=== PATIENT | female | born 1990 | race Caucasian/White ===

== ENCOUNTER 2017-07-27 22:57 | Emergency (ER) | payer OTHER ==
[~2017-07-27] VITALS: Ht 165.1 cm; Wt 97.6 kg
[2017-07-27 22:08] VITALS: BP 102/58
[~2017-07-27 22:57] MED LIST: FERR-252 PO; PREN-546 PO; TERBUTALINE 1 MG/ML VIAL SUBQ ONE; TERBUTALINE 1 MG/ML VIAL SUBQ SCH
[2017-07-27 23:33] VITALS: BP 111/71
--- NOTE | 2017-07-27 23:53 | NUR ---
PATIENT LEFT WITHOUT BEING SEEN BY DR. BARGER. NO FURTHER CARE PROVIDED FOR PATIENT.
== END 2017-07-27 23:53 | disposition left against medical advice (07) ==
LOC: MED 22:57 → EDSTATUS 22:57 → MED 23:53
DX: R10.9 Unspecified abdominal pain (principal); Z53.21 Procedure and treatment not carried out due to patient leaving prior to being seen by health care provider
CPT/HCPCS: 81000; J3105

== ENCOUNTER 2017-11-23 18:15 | Inpatient (IN) | payer OTHER ==
[~2017-11-23] VITALS: Ht 165.1 cm; Wt 104.3 kg
[~2017-11-23 18:15] MED LIST changes: -TERBUTALINE 1 MG/ML VIAL SUBQ ONE; -TERBUTALINE 1 MG/ML VIAL SUBQ SCH
[2017-11-23] MEDS ORDERED: NALBUPHINE HYDROCHLORIDE 10 MG/ML VIAL IVP PRN (18:40)
[2017-11-23] MEDS ORDERED: PROMETHAZINE 25 MG/ML VIAL IVP PRN (18:40)
[2017-11-23] MEDS ORDERED: MISOPROSTOL 25 MCG TAB VG PRN (18:40)
[2017-11-23] MEDS ORDERED: METHYLERGONOVINE 0.2 MG/ML AMP IM PRN (18:40)
[2017-11-23 18:59] VITALS: BP 112/55
[2017-11-23 20:25] LABS: BASOPHILS % (AUTO) 0.3 % (0.0-2.0); EOSINOPHILS % (AUTO) 0.6 % (0.0-4.0); HEMATOCRIT 29.9 % (36-48); HEMOGLOBIN 9.8 g/dL (12.0-16.0); LYMPHOCYTES # (AUTO) 1.4 K/uL (2.5-16.5); LYMPHOCYTES % (AUTO) 19.8 % (20.5-51.1); MEAN CORPUSCULAR HEMOGLOBIN 27 pg (27-31); MEAN CORPUSCULAR HGB CONC 33 g/dL (33-37); MEAN CORPUSCULAR VOLUME 82.6 fL (80-94); MONOCYTES # (AUTO) 0.4 K/uL (0.8-1.0); MONOCYTES % (AUTO) 5.7 % (1.7-9.3); NEUTROPHILS # (AUTO) 5.3 K/uL (1.8-7.7); NEUTROPHILS % (AUTO) 73.6 % (42.2-75.2); PLATELET COUNT (AUTO) 166 K/uL (140-450); RED BLOOD CELL COUNT(AUTO) 3.62 MIL/uL (4.20-5.40); RED CELL DISTRIBUTION WIDTH 15.3 % (11.6-13.7); WHITE BLOOD COUNT (AUTO) 7.2 K/uL (4.8-10.8)
[2017-11-23] MEDS: LACTATED RINGERS 1,000 ML IV SCH (20:28)
[2017-11-23] MEDS ORDERED: MISOPROSTOL 25 MCG TAB ONE (20:35)
[2017-11-23 20:49] LABS: ANION GAP 11.3 (8-16); CARBON DIOXIDE 25.4 mmol/L (21-32); CREATININE 0.6 mg/dL (0.6-1.3); POTASSIUM 3.7 mmol/L (3.5-5.1)
[2017-11-23 20:54] LABS: ALBUMIN 2.5 g/dL (3.4-5.0); TOTAL BILIRUBIN 0.3 mg/dL (0.0-1.0)
[2017-11-23 23:52] LABS: APPEARANCE,URINE CLOUDY (CLEAR); BILIRUBIN,URINE NEGATIVE (NEGATIVE); BLOOD, URINE 1+ (NEGATIVE); COLOR,URINE YELLOW (YELLOW); LEUKOCYTE ESTERASE ,URINE 2+ (NEGATIVE); NITRITE, URINE NEGATIVE (NEGATIVE); UGLUCOSE NEGATIVE (NEGATIVE)
[2017-11-24 00:23] LABS: RBC,URINE 0-5 (RARE) /HPF (0-5); WBC,URINE 80-100 /HPF (0-5); YEAST,URINE Few /HPF (None Seen)
[2017-11-24] MEDS ORDERED: OXYTOCIN 20 UNITS/LR PREMIX 1,000 ML IV ONE (00:44)
[2017-11-24] MEDS: OXYTOCIN 10 UNITS/ML VIAL IM SCH ×2 (00:51→21:16)
[2017-11-24] MEDS ORDERED: NALBUPHINE 10 MG/ML AMP ONE (01:26)
[2017-11-24] MEDS ORDERED: PROMETHAZINE 25 MG/ML VIAL ONE (01:26)
[2017-11-24] MEDS: LACTATED RINGERS 1,000 ML IV SCH ×3 (01:51→14:43)
[2017-11-24] MEDS ORDERED: ROPIVACAINE 0.2%/NS PREMIX 250 ML EPI ONE ×2 (01:57→19:18)
--- NOTE | 2017-11-24 06:54 | NUR ---
PATIENT HAS BEEN SCREENED AND CATEGORIZED LOW NUTRITION RISK. PATIENT WILL BE SEEN WITHIN 7 DAYS OF ADMISSION. 11/30/[address]
[2017-11-24] MEDS ORDERED: CLINDAMYCIN PHOSPHATE 900MG/NS 50 ML IV SCH ×2 (14:00→21:00)
[2017-11-24] MEDS ORDERED: CLINDAMYCIN 900 MG in DEXTROSE 5% 100 ML IV SCH (14:00)
[2017-11-24] MEDS ORDERED: OXYTOCIN 10 UNITS/ML VIAL ONE (20:11)
[2017-11-24] MEDS ORDERED: OXYTOCIN 10 UNITS/ML VIAL IM PRN (20:40)
[2017-11-24] MEDS ORDERED: METHYLERGONOVINE 0.2 MG/ML AMP IM PRN (20:40)
[2017-11-24] MEDS ORDERED: HYDROcodone/APAP 5/325 MG 1 TAB TAB PO PRN (20:40)
[2017-11-24] MEDS ORDERED: TEMAZEPAM 15 MG CAP PO PRN (20:40)
[2017-11-24] MEDS ORDERED: MEASLES, MUMPS, AND RUBELLA 1 VIAL SQVAC PRN (20:40)
[2017-11-24] MEDS ORDERED: BENZOCAINE/MENTHOL 20%-0.5% 60 GM CAN TP PRN (20:40)
[2017-11-24] MEDS ORDERED: IBUPROFEN 800 MG TAB PO PRN (20:40)
[2017-11-24] MEDS ORDERED: DOCUSATE SOD/SENNA 50/8.6 MG 1 TAB PO SCH (21:00)
[2017-11-24] MEDS ORDERED: oxyCODONE/APAP 5/325 MG 1 TAB TAB ONE (22:37)
[2017-11-24] MEDS: oxyCODONE/APAP 5/325 MG 1 TAB TAB PO PRN (22:38)
[2017-11-25] MEDS: oxyCODONE/APAP 5/325 MG 1 TAB TAB PO PRN ×3 (05:15→19:35)
[2017-11-25 06:32] LABS: HEMATOCRIT 28.7 % (36-48); HEMOGLOBIN 9.3 g/dL (12.0-16.0)
[2017-11-26] MEDS: oxyCODONE/APAP 5/325 MG 1 TAB TAB PO PRN (04:55)
[2017-11-26] MEDS ORDERED: IBUP-2213 PO (11:44)
== END 2017-11-26 13:50 | disposition home or self-care (01) | DRG 560 ==
LOC: MLD 18:15 → MFCC 11-25 00:15
PROVIDERS: ADMIT Obstetrics & Gynecology; ATTEND Obstetrics & Gynecology
PROC: 10E0XZZ Delivery of Products of Conception, External Approach (ICD-10-PCS; principal; 2017-11-24)
PROC: 3E0R3BZ Introduction of Anesthetic Agent into Spinal Canal, Percutaneous Approach (ICD-10-PCS; 2017-11-24)
PROC: 00HU33Z Insertion of Infusion Device into Spinal Canal, Percutaneous Approach (ICD-10-PCS; 2017-11-24)
PROC: 0HQ9XZZ Repair Perineum Skin, External Approach (ICD-10-PCS; 2017-11-24)
PROC: 10907ZC Drainage of Amniotic Fluid, Therapeutic from Products of Conception, Via Natural or Artificial Opening (ICD-10-PCS; 2017-11-24)
DX: O69.81X0 Labor and delivery complicated by cord around neck, without compression, not applicable or unspecified (principal); O70.0 First degree perineal laceration during delivery; O89.4 Spinal and epidural anesthesia-induced headache during the puerperium; Z37.0 Single live birth; Z3A.39 39 weeks gestation of pregnancy; Z28.21 Immunization not carried out because of patient refusal
CPT/HCPCS: 36415; 51702; 59200; 59409; 80053; 81001; 85018; 85025; 86592; 86886; 86900; 86901; 87086; J2300; J2550; J2590; J2795; J3490; J7060; J7120

== ENCOUNTER 2022-02-16 12:03 | Emergency (ER) | payer OTHER ==
[~2022-02-16] VITALS: Ht 165.1 cm; Wt 113.9 kg
[~2022-02-16 12:03] MED LIST changes: +IBUP-2213 PO
[2022-02-16 12:09] VITALS: BP 140/79
[2022-02-16] MEDS ORDERED: KETOROLAC 60 MG/2 ML VIAL IM ONE (12:40)
[2022-02-16 13:12] LABS: BASOPHILS % (AUTO) 0.2 % (0.0-2.0); HEMATOCRIT 37.9 % (36-48); HEMOGLOBIN 12.5 g/dL (12.0-16.0); LYMPHOCYTES # (AUTO) 0.7 K/uL (2.5-16.5); LYMPHOCYTES % (AUTO) 7.6 % (20.5-51.1); MEAN CORPUSCULAR HEMOGLOBIN 29 pg (27-31); MEAN CORPUSCULAR HGB CONC 33 g/dL (33-37); MEAN CORPUSCULAR VOLUME 87.7 fL (80-94); MONOCYTES # (AUTO) 0.3 K/uL (0.8-1.0); MONOCYTES % (AUTO) 3.7 % (1.7-9.3); NEUTROPHILS # (AUTO) 8.1 K/uL (1.8-7.7); NEUTROPHILS % (AUTO) 88.5 % (42.2-75.2); PLATELET COUNT (AUTO) 140 K/uL (140-450); RED BLOOD CELL COUNT(AUTO) 4.33 MIL/uL (4.20-5.40); WHITE BLOOD COUNT (AUTO) 9.1 K/uL (4.8-10.8)
[2022-02-16 13:28] LABS: APPEARANCE,URINE CLEAR (CLEAR); BILIRUBIN,URINE NEGATIVE (NEGATIVE); BLOOD, URINE 3+ (NEGATIVE); COLOR,URINE YELLOW (YELLOW); NITRITE, URINE POSITIVE (NEGATIVE); UGLUCOSE NEGATIVE (NEGATIVE)
[2022-02-16 13:45] LABS: ALBUMIN 3.5 g/dL (3.4-5.0); ANION GAP 13.5 (8-16); CARBON DIOXIDE 25.1 mmol/L (21-32); CREATININE 0.9 mg/dL (0.6-1.3); POTASSIUM 3.6 mmol/L (3.5-5.1); TOTAL BILIRUBIN 0.8 mg/dL (0.0-1.0)
[2022-02-16 13:49] LABS: LEUKOCYTE ESTERASE ,URINE 1+ (NEGATIVE)
[2022-02-16 13:56] LABS: RBC,URINE 20-50 /HPF (0-5)
[2022-02-16] MEDS ORDERED: CIPR500T4 PO (14:51)
[2022-02-16] MEDS ORDERED: IBUP-2213 PO (14:51)
[2022-02-16 15:10] VITALS: BP 112/50
== END 2022-02-16 15:10 | disposition home or self-care (01) ==
LOC: MED 12:03
DX: N39.0 Urinary tract infection, site not specified (principal); N20.0 Calculus of kidney; Z88.0 Allergy status to penicillin
CPT/HCPCS: 36415; 74176; 80053; 81001; 81025; 83690; 85025; 87086; 96372; 99284; J1885

== ENCOUNTER 2022-02-19 15:40 | Emergency (ER) | payer OTHER ==
[~2022-02-19] VITALS: Ht 165.1 cm; Wt 111.6 kg
[~2022-02-19 15:40] MED LIST changes: +CIPR500T4 PO
[2022-02-19 16:14] VITALS: BP 112/102
--- NOTE | 2022-02-19 16:35 | NUR ---
32 Y/O FEMALE BIB SELF C/O OF ABD PAIN RADIATING FROM THE RIGHT TO LEFT FLANK, FEVERS AND NAUSEA. PER PT SHE WAS SEEN IN THE ED ON 02/16/22 AND DIAGNOSED WITH KINDEY STONES AND UTI. PER PT SHE WAS TAKING HER ABX BUT REPORTS INCREASED AMOUNTS OF ABD PAIN ALLERGY: PCN PMH: DENIES RX: KEFLEX
[2022-02-19] MEDS ORDERED: ONDANSETRON 4 MG/2 ML VIAL IVP ONE (16:40)
[2022-02-19] MEDS ORDERED: NACL 0.9% 1,000 ML IV ONE (16:40)
[2022-02-19] MEDS ORDERED: KETOROLAC 15 MG/ML VIAL IVP ONE (16:40)
[2022-02-19 16:54] LABS: BASOPHILS % (AUTO) 0.4 % (0.0-2.0); HEMOGLOBIN 11.1 g/dL (12.0-16.0); LYMPHOCYTES # (AUTO) 0.6 K/uL (2.5-16.5); LYMPHOCYTES % (AUTO) 13.1 % (20.5-51.1); MEAN CORPUSCULAR HEMOGLOBIN 29 pg (27-31); MEAN CORPUSCULAR HGB CONC 34 g/dL (33-37); MEAN CORPUSCULAR VOLUME 85.2 fL (80-94); MONOCYTES # (AUTO) 0.4 K/uL (0.8-1.0); MONOCYTES % (AUTO) 7.9 % (1.7-9.3); NEUTROPHILS # (AUTO) 3.8 K/uL (1.8-7.7); NEUTROPHILS % (AUTO) 78.6 % (42.2-75.2); PLATELET COUNT (AUTO) 149 K/uL (140-450); RED BLOOD CELL COUNT(AUTO) 3.87 MIL/uL (4.20-5.40); RED CELL DISTRIBUTION WIDTH 14.8 % (11.6-13.7); WHITE BLOOD COUNT (AUTO) 4.8 K/uL (4.8-10.8)
[2022-02-19 17:17] LABS: ALBUMIN 2.6 g/dL (3.4-5.0); ANION GAP 12.1 (8-16); POTASSIUM 3.1 mmol/L (3.5-5.1); TOTAL BILIRUBIN 0.4 mg/dL (0.0-1.0)
[2022-02-19] MEDS ORDERED: ACETAMINOPHEN EXTRA STRENGTH 500 MG TAB PO ONE (17:30)
--- NOTE | 2022-02-19 17:32 | NUR ---
pt swabbed for covid(franko). walked and handed to lab
[2022-02-19] MEDS ORDERED: POTASSIUM CHLORIDE 10 MEQ TABER PO ONE (17:55)
[2022-02-19 18:34] LABS: APPEARANCE,URINE SL CLOUDY (CLEAR); BILIRUBIN,URINE 2+ (NEGATIVE); BLOOD, URINE 3+ (NEGATIVE); COLOR,URINE YELLOW (YELLOW); LEUKOCYTE ESTERASE ,URINE TRACE (NEGATIVE); NITRITE, URINE NEGATIVE (NEGATIVE); UGLUCOSE NEGATIVE (NEGATIVE)
[2022-02-19] MEDS ORDERED: SULF-59 PO (18:41)
[2022-02-19] MEDS ORDERED: ACET-9527 PO (18:41)
[2022-02-19 18:58] LABS: RBC,URINE 11-20 (MOD) /HPF (0-5)
[2022-02-19 18:59] LABS: TRICHOMONAS,URINE None Seen /HPF (None Seen); YEAST,URINE None Seen /HPF (None Seen)
--- NOTE | 2022-02-19 19:29 | NUR ---
REPORT GIVEN TO ROSEMARY RAMIREZ. TRANSFER OF CARE AT THIS TIME
--- NOTE | 2022-02-19 19:30 | NUR ---
REPORT RECEIVED FROM BLAISE MCMANUS/. ASSUMED CARE AT THIS TIME
--- NOTE | 2022-02-19 19:30 | NUR ---
David coley in [facility] - 02/19/22 at 1944 by [email or web address] REPORT GIVEN TO ROSEMARY. TRANSFER OF CARE AT THIS TIME
[2022-02-19] MEDS ORDERED: cefTRIAXone 1,000 MG VIAL ONE (19:37)
--- NOTE | 2022-02-19 20:30 | NUR ---
Patient discharged with v/s stable. Written and verbal after care instructions given and explained. Patient alert, oriented and verbalized understanding of instructions. Ambulatory with steady gait. All questions addressed prior to discharge. ID band removed. Patient advised to follow up with PMD. Rx of NORCO AND BACTRIM given. Patient educated on indication of medication including possible reaction and side effects. Opportunity to ask questions provided and answered.
== END 2022-02-19 20:30 | disposition home or self-care (01) ==
LOC: MED 15:40
DX: N39.0 Urinary tract infection, site not specified (principal); Z20.822 Contact with and (suspected) exposure to COVID-19; R50.9 Fever, unspecified; R53.1 Weakness; Z88.0 Allergy status to penicillin; Z79.899 Other long term (current) drug therapy
CPT/HCPCS: 36415; 80053; 81001; 81025; 85025; 87086; 87426; 96361; 96365; 96375; 99284; J0696; J1885; J7030

== ENCOUNTER 2022-07-24 17:53 | Emergency (ER) | payer OTHER ==
[~2022-07-24] VITALS: Ht 165.1 cm; Wt 107.5 kg
[~2022-07-24 17:53] MED LIST changes: +ACET-9527 PO; +SULF-59 PO
[2022-07-24 18:07] VITALS: BP 136/98
--- NOTE | 2022-07-24 19:13 | NUR ---
32 Y/O FEMALE BIB SELF C/O RUQ PAIN, FEVERS, CHILLS, NVD X3 DAYS DENIES ANY BLOOD IN STOOL OR VOMIT. PER PT HIGHEST TEMP IS 102.3, TOOK MOTRIN AT 1720 TODAY. A FEBRILE IN TRIAGE ALLERGY: PCN PMH: DENIES
--- NOTE | 2022-07-24 19:47 | NUR ---
WALKED URINE TO LAB. PREG TEST NEG RESULT.
--- NOTE | 2022-07-24 20:19 | NUR ---
PT CALLED IN LOBBY AND OUTSIDE BY DR. BARKER WITH NO ANSWER. ATTEMPTED TO CALL NUMBER LISTED ON FILE AND PT ANSWERED THEN HUNG UP. PT LWBS AT THIS TIME.
== END 2022-07-24 20:19 | disposition left against medical advice (07) ==
LOC: MED 17:53
DX: R10.11 Right upper quadrant pain (principal); Z53.21 Procedure and treatment not carried out due to patient leaving prior to being seen by health care provider

== ENCOUNTER 2023-03-30 22:40 | Emergency (ER) | payer OTHER ==
[~2023-03-30] VITALS: Ht 165.1 cm; Wt 108.9 kg
[2023-03-30 22:50] VITALS: BP 142/76; PULSE 84; RESP 16; TEMP 97.4; O2SAT 98
[2023-03-30] MEDS ORDERED: NACL 0.9% 1,000 ML IV SCH (23:15)
[2023-03-30] MEDS ORDERED: FAMOTIDINE 20 MG/2 ML VIAL IVP ONE (23:45)
[2023-03-31 01:01] LABS: BASOPHILS % (AUTO) 0.4 % (0.0-2.0); EOSINOPHILS # (AUTO) 0.1 K/uL (0-0.4); HEMATOCRIT 34.9 % (36-48); HEMOGLOBIN 11.6 g/dL (12.0-16.0); LYMPHOCYTES # (AUTO) 1.9 K/uL (2.5-16.5); LYMPHOCYTES % (AUTO) 27.5 % (20.5-51.1); MEAN CORPUSCULAR HEMOGLOBIN 28 pg (27-31); MEAN CORPUSCULAR HGB CONC 33 g/dL (33-37); MEAN CORPUSCULAR VOLUME 84.1 fL (80-94); MONOCYTES # (AUTO) 0.5 K/uL (0.8-1.0); MONOCYTES % (AUTO) 6.7 % (1.7-9.3); NEUTROPHILS # (AUTO) 4.6 K/uL (1.8-7.7); NEUTROPHILS % (AUTO) 64.4 % (42.2-75.2); PLATELET COUNT (AUTO) 202 K/uL (140-450); RED BLOOD CELL COUNT(AUTO) 4.15 MIL/uL (4.20-5.40); RED CELL DISTRIBUTION WIDTH 16.4 % (11.6-13.7); WHITE BLOOD COUNT (AUTO) 7.1 K/uL (4.8-10.8)
[2023-03-31 01:15] LABS: APPEARANCE,URINE CLEAR (CLEAR); BILIRUBIN,URINE NEGATIVE (NEGATIVE); BLOOD, URINE NEGATIVE (NEGATIVE); COLOR,URINE YELLOW (YELLOW); LEUKOCYTE ESTERASE ,URINE NEGATIVE (NEGATIVE); NITRITE, URINE NEGATIVE (NEGATIVE); PROTEIN,URINE NEGATIVE (NEGATIVE); UGLUCOSE NEGATIVE (NEGATIVE); UROBILINOGEN,URINE 0.2 EU/dL (0.2 - 1)
[2023-03-31 01:16] LABS: LACTIC ACID 0.8 mmol/L (0.4-2.0)
[2023-03-31 01:38] LABS: FLU A ANTIGEN negative (NEGATIVE); FLU B ANTIGEN negative (NEGATIVE)
[2023-03-31 01:46] LABS: ALBUMIN 3.5 g/dL (3.4-5.0); ANION GAP 11.3 (8-16); CARBON DIOXIDE 28.6 mmol/L (21-32); CREATININE 0.9 mg/dL (0.6-1.3); INR 0.99 (0.8-1.2); PARTIAL THROMBOPLASTIN TIME 27.7 secs (22-35.6); POTASSIUM 3.9 mmol/L (3.5-5.1); PROTHROMBIN TIME 10.4 secs (10.8-13.4); TOTAL BILIRUBIN 0.3 mg/dL (0.0-1.0); TOTAL PROTEIN, SERUM 7.3 g/dL (6.4-8.2)
[2023-03-31 02:23] VITALS: O2SAT 97
[2023-03-31 02:25] VITALS: BP 97/50; PULSE 62; RESP 20; O2SAT 100
[2023-03-31] MEDS ORDERED: SUCR1TAB35 PO (03:59)
[2023-03-31] MEDS ORDERED: FAMO-90 PO (03:59)
[2023-03-31] MEDS ORDERED: BEN10 PO (03:59)
== END 2023-03-31 04:16 | disposition home or self-care (01) ==
LOC: MED 22:40
DX: K29.70 Gastritis, unspecified, without bleeding (principal); Z20.822 Contact with and (suspected) exposure to COVID-19; Z79.899 Other long term (current) drug therapy; Z79.2 Long term (current) use of antibiotics; Z79.1 Long term (current) use of non-steroidal anti-inflammatories (NSAID); Z88.0 Allergy status to penicillin
CPT/HCPCS: 36415; 71045; 74176; 80053; 81003; 81025; 82550; 83605; 83690; 85025; 85610; 85730; 87040; 87086; 87426; 87804; 96361; 96374; 99285; J3490; J7030; Q0092

== ENCOUNTER 2023-08-13 13:18 | Emergency (ER) | payer OTHER ==
[~2023-08-13] VITALS: Ht 165.1 cm; Wt 113.4 kg
[~2023-08-13 13:18] MED LIST changes: +BEN10 PO; +FAMO-90 PO; +SUCR1TAB35 PO
[2023-08-13 13:35] VITALS: BP 142/63; PULSE 77; RESP 18; TEMP 97.8; O2SAT 99
[2023-08-13 13:55] LABS: BASOPHILS # (AUTO) 0.1 K/uL (0.00-0.22); BASOPHILS % (AUTO) 0.7 % (0.0-2.0); EOSINOPHILS % (AUTO) 0.5 % (0.0-4.0); HEMATOCRIT 37.7 % (36-48); HEMOGLOBIN 12.7 g/dL (12.0-16.0); LYMPHOCYTES # (AUTO) 1.1 K/uL (2.5-16.5); LYMPHOCYTES % (AUTO) 14.5 % (20.5-51.1); MEAN CORPUSCULAR HEMOGLOBIN 29 pg (27-31); MEAN CORPUSCULAR HGB CONC 34 g/dL (33-37); MEAN CORPUSCULAR VOLUME 86.3 fL (80-94); MONOCYTES # (AUTO) 0.3 K/uL (0.8-1.0); NEUTROPHILS # (AUTO) 5.9 K/uL (1.8-7.7); NEUTROPHILS % (AUTO) 80.3 % (42.2-75.2); PLATELET COUNT (AUTO) 190 K/uL (140-450); RED BLOOD CELL COUNT(AUTO) 4.37 MIL/uL (4.20-5.40); RED CELL DISTRIBUTION WIDTH 15.2 % (11.6-13.7); WHITE BLOOD COUNT (AUTO) 7.4 K/uL (4.8-10.8)
[2023-08-13] MEDS: ACETAMINOPHEN 325 MG TAB PO ONE (14:25)
[2023-08-13 15:49] LABS: APPEARANCE,URINE CLEAR (CLEAR); BILIRUBIN,URINE 1+ (NEGATIVE); BLOOD, URINE 3+ (NEGATIVE); COLOR,URINE YELLOW (YELLOW); LEUKOCYTE ESTERASE ,URINE TRACE (NEGATIVE); NITRITE, URINE POSITIVE (NEGATIVE); PROTEIN,URINE 3+ (NEGATIVE); UGLUCOSE TRACE (NEGATIVE)
[2023-08-13 16:02] LABS: BACTERIA,URINE >30 (MANY) /HPF (None Seen); MUCUS,URINE None Seen /LPF (None Seen); RBC,URINE TOO NUMEROUS TO COUN /HPF (0-5); SQUAMOUS EPITHELIAL CELL,UR None Seen /LPF (0-3 (FEW)); WBC,URINE TOO MANY TO COUNT /HPF (0-5)
[2023-08-13 16:03] LABS: TRICHOMONAS,URINE None Seen /HPF (None Seen); YEAST,URINE None Seen /HPF (None Seen)
[2023-08-13] MEDS ORDERED: CEPH-588 PO (16:08)
[2023-08-13 16:21] LABS: ICTOTEST NEGATIVE (NEGATIVE)
[2023-08-13 16:25] VITALS: BP 142/63; PULSE 77; RESP 18; TEMP 97.8; O2SAT 99
== END 2023-08-13 16:25 | disposition home or self-care (01) ==
LOC: MED 13:18
DX: O03.9 Complete or unspecified spontaneous abortion without complication (principal); O23.11 Infections of bladder in pregnancy, first trimester; N30.01 Acute cystitis with hematuria; Z3A.09 9 weeks gestation of pregnancy; Z79.899 Other long term (current) drug therapy; Z88.0 Allergy status to penicillin
CPT/HCPCS: 36415; 76801; 81001; 81025; 84702; 85025; 86900; 86901; 87086; 99284; Q0092